=== PATIENT | female | born 1980 ===

== ENCOUNTER 2025-02-12 21:26 | Emergency (ER) | payer BC, SELFPAY ==
[2025-02-12 21:29] VITALS: BP 153/96
[2025-02-12 21:59] LABS: % Basophils 0.3 % (0-2); % Immature Granulocytes 0.3 % (0-0.5); % Lymphocytes 17.5 % (20.5-51.1); % Monocytes 5.4 % (1.7-9.3); % Neutrophils 75.5 % (42.2-75.2); Absolute Basophils 0.1 10^3/uL (0-0.2); Absolute Eosinophils 0.2 10^3/uL (0-0.7); Absolute Immature Granulocytes 0.1 10^3/uL (0-0.05); Absolute Lymphocytes 3.2 10^3/uL (1.2-3.4); Absolute Neutrophils 13.9 10^3/uL (1.4-6.5); Hematocrit 37.6 % (37.0-47.0); Hemoglobin 12.6 g/dL (12.0-16.0); Mean Corp Hgb Conc. 33.5 g/dL (33.0-37.0); Mean Corpuscular Hgb 27.6 pg (27.0-31.0); Mean Corpuscular Volume 82.3 fL (81.0-99.0); Mean Platelet Volume 9.9 fL (7.4-10.4); Nucleated Red Blood Cells % 0 %; Platelet Count 352 10^3/uL (130-400); Red Blood Cell Count 4.57 10^6/uL (4.20-5.40); Red Cell Dist. Width 13.6 % (11.5-14.5); White Blood Cell Count 18.4 10^3/uL (4.8-10.8)
[2025-02-12 22:13] LABS: HCG, Serum Qualitative Screen Negative
[2025-02-12 22:18] LABS: ALT (SGPT) 26 U/L (0-35); AST (SGOT) 26 U/L (14-36); Albumin 4.4 g/dl (3.5-5.0); Alkaline Phosphatase 133 U/L (38-126); Blood Urea Nitrogen 9 mg/dl (7-17); Calcium 9.4 mg/dl (8.4-10.2); Carbon Dioxide 24 mmol/L (22-30); Chloride 100 mmol/L (98-107); Glucose 135 mg/dl (70-99); Lipase 114 U/L (23-300); Potassium 4.1 mmol/L (3.5-5.1); Sodium 136 mmol/L (135-145); Total Bilirubin 0.7 mg/dl (0.2-1.3); Total Protein 7.5 g/dl (6.3-8.2); eGFR > 60.00
[2025-02-13 00:10] VITALS: BMI 33.6
[2025-02-13 00:13] VITALS: BP 110/69
[2025-02-13] MEDS: DILAUDID 0.5 MG IV ×2 (00:26→01:22)
--- NOTE | 2025-02-13 00:30 | ED.GENMED ---
History of Present Illness
General
Chief Complaint: Abdominal Pain
Source: patient
Exam Limitations: none
Time Seen by Provider: 02/13/25 00:08
History of Present Illness
History of Present Illness:
44-year-old female presents complaining of sharp pain to the right lower abdomen onset yesterday worse today. Has been intermittent since its onset. Prior history of cholecystectomy and . No current nausea. No change in her bowel
movements. No fever. No other complaints at this time. No urinary symptoms
Phy Exam
Physical Exam
Physical Exam:
General: Well-appearing female no acute respiratory distress
HEENT: Normocephalic atraumatic
Heart: Regular rate and rhythm no murmurs
Lungs: Clear no wheeze
Abdomen soft tender to the right lower quadrant no guarding or rebound normal bowel sounds nondistended no costovertebral tenderness
Extremities: No cyanosis
Course
Orders/Labs/Results
Orders:
Orders
02/12/25 21:28
Test Result ONCE
02/12/25 21:53
Complete Blood Count/With Diff Urgent
Comprehensive Metabolic Panel Urgent
HCG, Serum Qualitative Screen Urgent
Lipase Urgent
02/13/25 00:16
CT Abd/pelvis W Iv Cont Urgent
Comment:
Reason For Exam: rlq pain
HYDROmorphone [Dilaudid] 0.5 mg IV NOW STA
02/13/25 00:27
Urinalysis Reflex To Culture Urgent
Date Specimen was Collected: 02/13/25
Time Specimen was Collected: 00:21
Urine Microscopic Reflex Cult Urgent
02/13/25 01:14
HYDROmorphone [Dilaudid] 0.5 mg IV NOW STA
02/13/25 02:05
LevoFLOXacin [Levaquin] 500 mg PO NOW STA
MetroNIDAZOLE [Flagyl] 500 mg PO NOW STA
Abnormal Lab Results
02/12/25 02/13/25
21:53 00:27
WBC 18.4 H 10^3/uL
(4.8-10.8)
Abs Immat Gran (auto) 0.1 H 10^3/uL
(0-0.05)
Absolute Neuts (auto) 13.9 H 10^3/uL
(1.4-6.5)
Absolute Monos (auto) 1.0 H 10^3/uL
(0.1-0.6)
Neutrophils % 75.5 H %
(42.2-75.2)
Lymphocytes % 17.5 L %
(20.5-51.1)
Glucose 135 H mg/dl
(70-99)
Alkaline Phosphatase 133 H U/L
(38-126)
Ur Occult Blood Reflex 2+ A
(Negative)
02/12/25 21:53
02/12/25 21:53
Vital Signs
Initial and Last Documented VS:
Initial Vital Signs
Temp Pulse Resp BP Pulse Ox
98.2 F 99 18 153/96 96
02/12/25 21:29 02/12/25 21:29 02/12/25 21:29 02/12/25 21:29 02/12/25 21:29
Last Documented Vital Signs
Temp Pulse Resp BP Pulse Ox
98.2 F 99 18 121/70 94
02/12/25 21:29 02/12/25 21:29 02/12/25 21:29 02/13/25 02:00 02/13/25 02:00
MDM/Problems Addressed
Differential Diagnosis Includes:
Right lower abdominal pain. Consider patient versus appendicitis versus ovarian cyst versus renal colic labs demonstrate leukocytosis with a white count of 18,000. Urinalysis pending. Will order CT with IV contrast of the abdomen and pelvis
*Critical Care Note
Total Time (30-74mins, 75-104mins- exclusive of procedures): Not Applicable
Update Note
Update Note:
CT demonstrates transverse diverticulitis. Discussed with patient options for treatment including staying in hospital for further pain control and IV antibiotics versus going home. She expresses her desire to go home. Explained that her white
blood cell count was high. Levaquin and Flagyl were prescribed. Recommended clear liquid diet. Return precautions were given
ED Attending Note
-
Portions of this chart may have been created with voice recognition software.� Occasional wrong word or��sound alike� substitutions may have occurred due to the inherent limitations of voice recognition software.
Discharge Plan
Departure
Patient Disposition: Home (Routine Discharge)
Date of Disposition: 02/13/25
Time of Disposition: 02:29
Patient with high blood pressure during this ER visit?: No
Discharge Problem:
Acute diverticulitis
Instructions: Diverticulitis (DC)
Prescriptions:
New
levofloxacin 500 mg tablet
500 mg PO DAILY 7 Days Qty: 7 0RF
metronidazole 500 mg tablet
500 mg PO Q8H 7 Days Qty: 21 0RF
Referrals:
[facility] [Other]
Activity Restrictions/Additional Instructions:
Drink plenty clear liquids. Use Tylenol or ibuprofen if needed for pain. Take antibiotic as directed. Please return here for increasing pain vomiting fever or other concerning findings
Interventions
Interventions:
*Risk Screen - Suicide Last Done: 02/12/25 21:31
*General Assessment Last Done: 02/12/25 21:31
*Neglect/Abuse Screening Last Done: 02/12/25 21:31
*ED- Fall Risk Assessment Last Done: 02/13/25 00:10
*ED COVID-19 Vaccine History Last Done: 02/12/25 21:31
HH-Qgsrcf-Pyagwgsnjc Assessment Last Done: 02/13/25 00:10
Discharge Date and Time
Print Language: MOSOT[place]
[2025-02-13 00:42] LABS: Urine Albumin Negative (Neg - Trace); Urine Bilirubin Negative (Negative); Urine Character Clear (Clear); Urine Color Yellow; Urine Glucose Negative (Negative); Urine Ketone Negative (Negative); Urine Leukocyte Negative (Negative); Urine Nitrite Negative (Negative); Urine Occult Blood 2+ (Negative); Urine Specific Gravity 1.015 (<1.030); Urine Urobilinogen 1+ (Neg - 1+)
[2025-02-13 00:54] LABS: Urine Red Blood Cell 0-2 /HPF (0-2); Urine White Cell 0-2 /HPF (0-5)
[2025-02-13 01:08] VITALS: BP 119/73
[2025-02-13 02:00] VITALS: BP 121/70
[2025-02-13] MEDS: FLAGYL 500 MG PO (02:10)
[2025-02-13] MEDS: LEVAQUIN 500 MG PO (02:10)
== END 2025-02-13 02:44 | disposition home or self-care (01) ==
LOC: EMR 21:26
PROVIDERS: Emergency Medicine; Physician Assistant; EMERGENCY PHYSICIAN Emergency Medicine
DX: K57.32 Diverticulitis of large intestine without perforation or abscess without bleeding (principal); Z90.49 Acquired absence of other specified parts of digestive tract
CPT/HCPCS: 96374; 96376; 99284; 74177; 80053; 81003; 81015; 83690; 84703; 85025; Q9967